=== PATIENT | male | born 1995 | race Caucasian/White ===

== ENCOUNTER 2017-08-02 17:02 | Emergency (ER) | payer BC ==
[~2017-08-02] VITALS: Ht 175.3 cm; Wt 60.8 kg
[2017-08-02 17:04] VITALS: BP 118/67
== END 2017-08-02 18:21 | disposition home or self-care (01) ==
LOC: ED 18:15
DX: S83.412A Sprain of medial collateral ligament of left knee, initial encounter (principal); X58.XXXA Exposure to other specified factors, initial encounter; Y93.89 Activity, other specified; Y99.8 Other external cause status; Y92.89 Other specified places as the place of occurrence of the external cause
CPT/HCPCS: 99284